=== PATIENT | female | born 1995 | race Caucasian/White ===

== ENCOUNTER 2020-08-16 12:06 | Emergency (ER) | payer OTHER ==
[2020-08-16 12:23] VITALS: BMI 25.0
[2020-08-16] MEDS ORDERED: SODIUM CHLORIDE 1,000 ML IV STA (12:48)
[2020-08-16] MEDS ORDERED: FAMOTIDINE 20 MG/50 ML IVPB 20 MG/50 ML MG IVPB ONE ×2 (12:48→13:17)
[2020-08-16] MEDS ORDERED: ACETAMINOPHEN 1000 MG/100 ML VIAL (NON FORMULARY) IVPB ONE (12:48)
[2020-08-16] MEDS ORDERED: ACETAMINOPHEN INJECTION 100 ML IVPB ONE (13:17)
[2020-08-16 13:51] LABS: BASO % 0.3 % (0-2.0); EOS % 1.6 % (0-4.5); HEMATOCRIT 35.5 % (32.4-45.2); HEMOGLOBIN 12.4 GM/dL (10.7-15.3); LYMPH % 21.4 % (8-40); MCH 30.5 pg (25.7-33.7); MCHC 34.8 g/dl (32.0-36.0); MEAN CELL VOLUME 87.6 fl (80-96); MEAN PLT VOLUME 7.7 fl (7.5-11.1); MONO % 9.6 % (3.8-10.2); NEUT % 67.1 % (42.8-82.8); PLATELET COUNT 296 K/MM3 (134-434); RBC 4.05 M/mm3 (3.60-5.2); RDW 12.8 % (11.6-15.6); WHITE BLOOD COUNT 8.3 K/mm3 (4.0-10.0)
[2020-08-16 13:53] LABS: EPI CELLS >36 /uL (0-25.1); HYALINE CASTS 9 /uL (0-3.1); PH,URINE 6.5 (5.0-8.0); URINE APPEARANCE CLOUDY; URINE BACTERIA 1139 /uL (0-1359); URINE BILIRUBIN NEGATIVE (NEGATIVE); URINE COLOR DK YELLOW; URINE GLUCOSE (UA) NEGATIVE (NEGATIVE); URINE KETONE TRACE (NEGATIVE); URINE LEUK ESTERASE 1+ (NEGATIVE); URINE NITRITE NEGATIVE (NEGATIVE); URINE PROTEIN 2+ (NEGATIVE); URINE RBC 32 /uL (0-23.9); URINE WBC 39 /uL (0-25.8)
[2020-08-16 14:11] LABS: ALBUMIN 3.5 g/dl (3.4-5.0); CALCIUM 9.8 mg/dL (8.5-10.1)
[2020-08-16 14:14] LABS: CREATININE 0.5 mg/dL (0.55-1.3)
[2020-08-16 14:16] LABS: BILIRUBIN,TOTAL 0.2 mg/dL (0.2-1); TOT PROT 7.8 g/dl (6.4-8.2)
[2020-08-16 15:35] VITALS: BP 124/82; PULSE 85; TEMP 98
== END 2020-08-16 15:36 | disposition home or self-care (01) ==
LOC: JER 12:06
PROC: 3E0333Z Introduction of Anti-inflammatory into Peripheral Vein, Percutaneous Approach (ICD-10-PCS; principal; 2020-08-16)
PROC: 3E033GC Introduction of Other Therapeutic Substance into Peripheral Vein, Percutaneous Approach (ICD-10-PCS; 2020-08-16)
PROC: 3E0337Z Introduction of Electrolytic and Water Balance Substance into Peripheral Vein, Percutaneous Approach (ICD-10-PCS; 2020-08-16)
DX: O23.11 Infections of bladder in pregnancy, first trimester (principal); R10.13 Epigastric pain; Z3A.13 13 weeks gestation of pregnancy
CPT/HCPCS: 36415; 76705-TC; 76815; 80053; 81003; 83690; 85025; 87086; 99284-25; J0131

== ENCOUNTER 2020-09-22 14:46 | Emergency (ER) | payer OTHER ==
[2020-09-22 14:54] VITALS: BP 113/72; PULSE 96; TEMP 98.2; BMI 25.0
[2020-09-22 16:45] LABS: EPI CELLS >36 /uL (0-25.1); HYALINE CASTS 4 /uL (0-3.1); PH,URINE 6.5 (5.0-8.0); URINE APPEARANCE CLEAR; URINE BACTERIA 394 /uL (0-1359); URINE BILIRUBIN NEGATIVE (NEGATIVE); URINE COLOR YELLOW; URINE GLUCOSE (UA) NEGATIVE (NEGATIVE); URINE KETONE NEGATIVE (NEGATIVE); URINE LEUK ESTERASE 1+ (NEGATIVE); URINE NITRITE NEGATIVE (NEGATIVE); URINE PROTEIN NEGATIVE (NEGATIVE); URINE RBC 34 /uL (0-23.9); URINE WBC 59 /uL (0-25.8)
== END 2020-09-22 16:58 | disposition home or self-care (01) ==
LOC: JER 14:46
DX: O26.892 Other specified pregnancy related conditions, second trimester (principal); R10.9 Unspecified abdominal pain; Z3A.18 18 weeks gestation of pregnancy
CPT/HCPCS: 81003; 87086; 99283-25

== ENCOUNTER 2021-02-01 19:30 | Inpatient (IN) | payer OTHER ==
[2021-02-01] MEDS ORDERED: ELECTROLYTE-148 SOLN 500 ML IV ONE (21:55)
[2021-02-01] MEDS ORDERED: BUTORPHANOL TARTRATE 1 MG/ML VIAL IVPB PRN (23:43)
[2021-02-01] MEDS ORDERED: PROMETHAZINE HCL 25 MG/1 ML VIAL IVPUSH ONE (23:43)
[2021-02-02 01:06] LABS: BASO % 0.3 % (0-2.0); EOS % 0.8 % (0-4.5); HEMATOCRIT 36.5 % (32.4-45.2); HEMOGLOBIN 12.5 GM/dL (10.7-15.3); LYMPH % 19.2 % (8-40); MCH 29.9 pg (25.7-33.7); MCHC 34.3 g/dl (32.0-36.0); MEAN CELL VOLUME 87.1 fl (80-96); MEAN PLT VOLUME 8.2 fl (7.5-11.1); MONO % 11.7 % (3.8-10.2); PLATELET COUNT 292 10^3/uL (134-434); RBC 4.19 M/mm3 (3.60-5.2); RDW 13.6 % (11.6-15.6); WHITE BLOOD COUNT 9.2 K/mm3 (4.0-10.0)
[2021-02-02 01:12] LABS: INR 1.01 (0.83-1.09); PROTHROMBIN TIME (PATIENT) 11.8 SEC (9.7-13.0)
[2021-02-02 01:15] LABS: ACTIVATED PTT 28.6 SECONDS (25.2-36.5)
[2021-02-02] MEDS: ELECTROLYTE-148 SOLN 1,000 ML IV SCH ×3 (01:20→22:22)
[2021-02-02 02:11] VITALS: BMI 30.3
[2021-02-02] MEDS ORDERED: FENTANYL/BUPIVACAINE/NS/PF - PCEA - 50 ML DISP.SYRIN EP ONE ×6 (02:39→23:27)
[2021-02-02] MEDS ORDERED: NALOXONE HCL 0.4 MG/ML VIAL IVPUSH PRN (02:47)
[2021-02-02] MEDS ORDERED: BUPIVACAINE HCL/PF 0.25% (2.5MG/ML) 10 ML VIAL ONE ×2 (02:48→17:36)
[2021-02-02] MEDS: FENTANYL/BUPIVACAINE/NS/PF - PCEA - 50 ML DISP.SYRIN EP SCH ×2 (03:00→21:00)
[2021-02-02] MEDS ORDERED: AMPICILLIN SODIUM 2 GM VIAL IVPB ONE (03:00)
[2021-02-02 03:23] LABS: HIV INTERPRETATION NEGATIVE (NEGATIVE)
[2021-02-02] MEDS ORDERED: AMPICILLIN SODIUM 2 GM VIAL ONE (03:45)
[2021-02-02] MEDS ORDERED: AMPICILLIN SODIUM 1 GM VIAL ONE ×5 (06:24→22:03)
[2021-02-02] MEDS: AMPICILLIN SODIUM 1 GM VIAL IVPB SCH ×5 (06:29→22:23)
[2021-02-02 14:49] LABS: POC NITRAZINE NEG
[2021-02-02] MEDS: OXYTOCIN 30 UNITS in 0.9% NS 30 UNIT/500 ML INFUS.BAG IVPB SCH (20:30)
[2021-02-02] MEDS ORDERED: OXYTOCIN 30 UNITS in 0.9% NS 30 UNIT/500 ML INFUS.BAG IVPB ONE (20:35)
[2021-02-02] MEDS ORDERED: PCA PUMP NR ONE ×2 (20:41→23:27)
[2021-02-03] MEDS ORDERED: BUPIVACAINE HCL/PF 0.25% (2.5MG/ML) 10 ML VIAL ONE (01:01)
[2021-02-03] MEDS: FENTANYL/BUPIVACAINE/NS/PF - PCEA - 50 ML DISP.SYRIN EP SCH ×2 (02:00→03:02)
[2021-02-03] MEDS ORDERED: AMPICILLIN SODIUM 1 GM VIAL ONE (02:07)
[2021-02-03] MEDS ORDERED: PCA PUMP NR ONE (02:07)
[2021-02-03] MEDS ORDERED: FENTANYL/BUPIVACAINE/NS/PF - PCEA - 50 ML DISP.SYRIN EP ONE (02:07)
[2021-02-03] MEDS: AMPICILLIN SODIUM 1 GM VIAL IVPB SCH ×2 (02:19→07:23)
[2021-02-03] MEDS ORDERED: SODIUM BICARBONATE 8.4% 50 MEQ/50 ML VIAL ONE (04:50)
[2021-02-03] MEDS ORDERED: LIDOCAINE HCL/EPINEPHRINE/PF 10 ML VIAL ONE (04:50)
[2021-02-03] MEDS ORDERED: OXYTOCIN 20 UNITS in 0.9% NS 20 UNIT/1,000 ML INFUS.BAG IV ONE ×2 (04:51→13:57)
[2021-02-03] MEDS ORDERED: CITRIC ACID/SODIUM CITRATE 30 ML UNIT-DOSE CUP PO ONE (05:00)
[2021-02-03] MEDS ORDERED: ONDANSETRON 4 MG/2 ML VIAL IVPUSH PRN (05:04)
[2021-02-03] MEDS ORDERED: ceFAZolin SODIUM 1 GM VIAL ONE (05:28)
[2021-02-03] MEDS ORDERED: METHYLERGONOVINE MALEATE 0.2 MG/1 ML AMP IM PRN (06:33)
[2021-02-03] MEDS ORDERED: IBUPROFEN 800 MG/8 ML IJ IVPB PRN (06:33)
[2021-02-03] MEDS ORDERED: ACETAMINOPHEN 1000 MG/100 ML VIAL IVPB PRN (06:41)
[2021-02-03] MEDS: OXYTOCIN 20 UNITS in 0.9% NS 20 UNIT/1,000 ML INFUS.BAG IV SCH ×2 (07:23→13:58)
[2021-02-03] MEDS: DEXTROSE 5% IVPB SCH ×2 (10:21→18:14)
[2021-02-03] MEDS: WATER IVPB SCH ×2 (10:21→18:14)
[2021-02-03] MEDS: CEFTRIAXONE IVPB SCH ×2 (10:21→18:14)
[2021-02-03 11:42] LABS: BLOOD UREA NITROGEN 9.5 mg/dL (7-18); CREATININE 0.7 mg/dL (0.55-1.3)
[2021-02-03] MEDS ORDERED: cefTRIAXone SODIUM 1 GM VIAL ONE (18:11)
[2021-02-03] MEDS ORDERED: DEXTROSE 5%-WATER - 50 ML IVPB ONE (18:11)
[2021-02-03] MEDS: SIMETHICONE 80 MG TAB.CHEW (FP) PO PRN (19:37)
[2021-02-03] MEDS: IBUPROFEN 600 MG TABLET (FP) PO PRN (19:37)
[2021-02-03] MEDS: ELECTROLYTE-148 SOLN 1,000 ML IV SCH (23:42)
[2021-02-03] MEDS: OXYTOCIN 30 UNITS in 0.9% NS 30 UNIT/500 ML INFUS.BAG IVPB SCH (23:42)
[2021-02-04] MEDS ORDERED: cefTRIAXone SODIUM 1 GM VIAL ONE (02:01)
[2021-02-04] MEDS ORDERED: DEXTROSE 5%-WATER - 50 ML IVPB ONE (02:01)
[2021-02-04] MEDS: DEXTROSE 5% IVPB SCH (02:06)
[2021-02-04] MEDS: CEFTRIAXONE IVPB SCH (02:06)
[2021-02-04] MEDS: SIMETHICONE 80 MG TAB.CHEW (FP) PO PRN ×4 (02:06→22:25)
[2021-02-04] MEDS: WATER IVPB SCH (02:06)
[2021-02-04] MEDS: IBUPROFEN 600 MG TABLET (FP) PO PRN ×4 (02:07→23:52)
[2021-02-04] MEDS: FENTANYL/BUPIVACAINE/NS/PF - PCEA - 50 ML DISP.SYRIN EP SCH (03:46)
[2021-02-04] MEDS ORDERED: BISACODYL 10 MG SUPP.RECT RC PRN (06:33)
[2021-02-04 09:08] LABS: BASO % 0.3 % (0-2.0); EOS % 0.4 % (0-4.5); HEMATOCRIT 28.9 % (32.4-45.2); LYMPH % 20.2 % (8-40); MCH 30.2 pg (25.7-33.7); MCHC 34.7 g/dl (32.0-36.0); MEAN CELL VOLUME 87.1 fl (80-96); MEAN PLT VOLUME 7.7 fl (7.5-11.1); MONO % 10.8 % (3.8-10.2); NEUT % 68.3 % (42.8-82.8); PLATELET COUNT 261 10^3/uL (134-434); RBC 3.32 M/mm3 (3.60-5.2); WHITE BLOOD COUNT 9.6 K/mm3 (4.0-10.0)
[2021-02-04] MEDS: ACETAMINOPHEN 325 MG TABLET (FP) PO PRN (23:51)
[2021-02-05] MEDS: oxyCODONE HCL 5 MG TABLET PO PRN ×2 (09:26→14:45)
[2021-02-05] MEDS: SIMETHICONE 80 MG TAB.CHEW (FP) PO PRN ×2 (09:26→14:46)
[2021-02-05] MEDS: FERROUS SO4 325 MG TABLET (FP) PO SCH (16:56)
[2021-02-05] MEDS: ACETAMINOPHEN 325 MG TABLET (FP) PO PRN (19:35)
[2021-02-05] MEDS: IBUPROFEN 600 MG TABLET (FP) PO PRN (20:43)
[2021-02-06 07:33] LABS: BASO % 0.4 % (0-2.0); EOS % 2.8 % (0-4.5); HEMATOCRIT 24.2 % (32.4-45.2); HEMOGLOBIN 8.5 GM/dL (10.7-15.3); LYMPH % 34.2 % (8-40); MCH 30.4 pg (25.7-33.7); MCHC 35.3 g/dl (32.0-36.0); MEAN CELL VOLUME 86.1 fl (80-96); MEAN PLT VOLUME 7.1 fl (7.5-11.1); MONO % 10.6 % (3.8-10.2); PLATELET COUNT 277 10^3/uL (134-434); RBC 2.81 M/mm3 (3.60-5.2); RDW 13.6 % (11.6-15.6); WHITE BLOOD COUNT 6.1 K/mm3 (4.0-10.0)
[2021-02-06] MEDS: ACETAMINOPHEN 325 MG TABLET (FP) PO PRN (08:24)
[2021-02-06] MEDS: FERROUS SO4 325 MG TABLET (FP) PO SCH (08:24)
[2021-02-06] MEDS: SIMETHICONE 80 MG TAB.CHEW (FP) PO PRN ×2 (08:27→13:53)
[2021-02-06 10:16] VITALS: BP 125/76; PULSE 75; TEMP 98
[2021-02-06] MEDS: IBUPROFEN 600 MG TABLET (FP) PO PRN (13:52)
== END 2021-02-06 14:10 | disposition home or self-care (01) | DRG 540 ==
LOC: JDEL 19:30 → JLDR 02-02 00:30 → J3W 02-03 14:16
PROVIDERS: ADMIT Obstetrics & Gynecology; ATTEND Obstetrics & Gynecology
PROC: 10D00Z1 Extraction of Products of Conception, Low, Open Approach (ICD-10-PCS; principal; 2021-02-03)
DX: O62.2 Other uterine inertia (principal); O32.4XX0 Maternal care for high head at term, not applicable or unspecified; O67.8 Other intrapartum hemorrhage; Z37.0 Single live birth; O99.824 Streptococcus B carrier state complicating childbirth; B95.1 Streptococcus, group B, as the cause of diseases classified elsewhere; O90.81 Anemia of the puerperium; D64.9 Anemia, unspecified; Z3A.37 37 weeks gestation of pregnancy
CPT/HCPCS: 36415; 59025; 80048; 83986-QW; 85025; 85610; 85730; 86762; 86780; 86850; 86900; 86901; 87389; 88307-TC; C9803; U0003; U0005

== ENCOUNTER 2021-05-10 11:05 | Emergency (ER) | payer OTHER ==
[2021-05-10 11:21] VITALS: BP 136/79; TEMP 99.9; BMI 25.2
[2021-05-10 11:23] VITALS: PULSE 121
[2021-05-10] MEDS ORDERED: IBUPROFEN 600 MG TABLET (FP) PO ONE ×2 (12:27→12:39)
[2021-05-10] MEDS ORDERED: ACETAMINOPHEN 325 MG TABLET (FP) PO ONE (12:27)
[2021-05-10] MEDS ORDERED: ACETAMINOPHEN 325 MG TABLET (FP) ONE (12:39)
[2021-05-11 14:07] LABS: SARS-CoV-2 NAA Detected (Not Detected)
== END 2021-05-10 13:50 | disposition home or self-care (01) ==
LOC: JER 11:05
DX: U07.1 COVID-19 (principal); R05.1 Acute cough
CPT/HCPCS: 71046-TC-FY; 87651; 87804; 99284-25; C9803; U0003; U0005

== ENCOUNTER 2022-04-14 17:45 | Emergency (ER) | payer BC, OTHER ==
[2022-04-14 17:55] VITALS: BP 119/77; PULSE 102; RESP 18; TEMP 98.4; BMI 25.2
[2022-04-14 19:10] LABS: HCG,QUALITATIVE URINE Negative
[2022-04-14 19:11] LABS: EPI CELLS >36 /uL (0-25.1); HYALINE CASTS 2 /uL (0-3.1); PH,URINE 5.5 (5.0-8.0); URINE APPEARANCE CLEAR; URINE BACTERIA 694 /uL (0-1359); URINE BILIRUBIN NEGATIVE (NEGATIVE); URINE COLOR YELLOW; URINE GLUCOSE (UA) NEGATIVE (NEGATIVE); URINE KETONE TRACE (NEGATIVE); URINE LEUK ESTERASE NEGATIVE (NEGATIVE); URINE NITRITE NEGATIVE (NEGATIVE); URINE PROTEIN TRACE (NEGATIVE); URINE RBC 32 /uL (0-23.9); URINE UROBILINOGEN 0.2 mg/dL (0.2-1.0); URINE WBC 51 /uL (0-25.8)
[2022-04-14] MEDS ORDERED: CEPHALEXIN MONOHYDRATE 500 MG CAPSULE (UD) PO ONE (19:23)
[2022-04-14] MEDS ORDERED: CEPHALEXIN MONOHYDRATE 500 MG CAPSULE (UD) ONE (19:33)
== END 2022-04-14 20:00 | disposition home or self-care (01) ==
LOC: JER 17:45
DX: N10 Acute pyelonephritis (principal)
CPT/HCPCS: 0241U-QW; 81003; 84703; 87086; 99283-25

== ENCOUNTER 2023-02-16 17:19 | Inpatient (IN) | payer OTHER ==
[2023-02-16] MEDS ORDERED: ELECTROLYTE-148 SOLN 1,000 ML IV SCH ×4 (18:30→20:30)
[2023-02-16] MEDS ORDERED: CITRIC ACID/SODIUM CITRATE 30 ML UNIT-DOSE CUP PO ONE (19:30)
[2023-02-16] MEDS ORDERED: OXYTOCIN 30 UNITS in 0.9% NS 30 UNIT/500 ML INFUS.BAG IVPB ONE (19:48)
[2023-02-16] MEDS ORDERED: morphine SULFATE/PF 1 MG/2 ML (2cc Syringe - QUVA) ONE (19:52)
[2023-02-16] MEDS ORDERED: DEXAMETHASONE SOD PHOSPHATE 4 MG/1 ML VIAL ONE (19:52)
[2023-02-16] MEDS ORDERED: ONDANSETRON 4 MG/2 ML VIAL ONE (19:52)
[2023-02-16] MEDS ORDERED: KETOROLAC TROMETHAMINE 30 MG/1 ML VIAL ONE (19:52)
[2023-02-16] MEDS ORDERED: FENTANYL CITRATE/PF 50 MCG/ML VIAL ONE (19:52)
[2023-02-16] MEDS ORDERED: ceFAZolin SODIUM 1 GM VIAL ONE (19:52)
[2023-02-16 20:02] LABS: BASO % 0.2 % (0-2.0); EOS % 1.2 % (0-4.5); HEMATOCRIT 36.9 % (32.4-45.2); HEMOGLOBIN 12.7 GM/dL (10.7-15.3); LYMPH % 23.2 % (8-40); MCH 30.3 pg (25.7-33.7); MCHC 34.4 g/dl (32.0-36.0); MEAN PLT VOLUME 7.1 fl (7.5-11.1); MONO % 10.8 % (3.8-10.2); NEUT % 64.6 % (42.8-82.8); PLATELET COUNT 297 10^3/uL (134-434); RBC 4.19 M/mm3 (3.60-5.2); RDW 13.4 % (11.6-15.6); WHITE BLOOD COUNT 8.3 K/mm3 (4.0-10.0)
[2023-02-16 20:09] LABS: INR 1.05 (0.83-1.09); PROTHROMBIN TIME (PATIENT) 12.2 SEC (9.7-13.0)
[2023-02-16 20:10] VITALS: BMI 28.7
[2023-02-16 20:12] LABS: ACTIVATED PTT 27.4 SECONDS (25.2-36.5)
[2023-02-16 20:31] LABS: POTASSIUM 3.7 mmol/L (3.5-5.1)
[2023-02-16 20:34] LABS: CALCIUM 8.2 mg/dL (8.5-10.1)
[2023-02-16 20:35] LABS: BLOOD UREA NITROGEN 6.9 mg/dL (7-18)
[2023-02-16 20:38] LABS: CREATININE 0.5 mg/dL (0.55-1.3)
[2023-02-16] MEDS ORDERED: ONDANSETRON 4 MG/2 ML VIAL IVPUSH PRN (20:48)
[2023-02-16] MEDS ORDERED: ACETAMINOPHEN 325 MG TABLET (FP) PO PRN (20:48)
[2023-02-16] MEDS ORDERED: BENZOCAINE 28 GM HEMORRHOIDAL OINTMENT TP PRN (22:14)
[2023-02-16] MEDS ORDERED: WITCH HAZEL 50% (TUCKS) 40 PAD/JAR PAD TP PRN (22:14)
[2023-02-16] MEDS ORDERED: BENZOCAINE 20% 57 GM BOTTLE TP PRN (22:14)
[2023-02-16] MEDS ORDERED: METHYLERGONOVINE MALEATE 0.2 MG/1 ML AMP IM PRN (22:14)
[2023-02-16] MEDS ORDERED: OXYTOCIN 20 UNITS in 0.9% NS 20 UNIT/1,000 ML INFUS.BAG IV SCH (22:15)
[2023-02-16 22:41] LABS: CORD BASE EXCESS -2.8 mmol/L (0-2); CORD HCO3 25.3 mmHg (20-29); CORD pH 7.265 (7.14-7.44)
[2023-02-16 22:42] LABS: CORD HCO3 26.9 mmHg (20-29); CORD PCO2 69.8 mmHg (30-78); CORD pH 7.204 (7.14-7.44)
[2023-02-16] MEDS ORDERED: IBUPROFEN 800 MG/8 ML IJ IVPB ONE (23:50)
[2023-02-16] MEDS: IBUPROFEN 800 MG/8 ML IJ IVPB PRN (23:55)
[2023-02-17 07:44] LABS: BASO % 0.1 % (0-2.0); HEMATOCRIT 34.2 % (32.4-45.2); HEMOGLOBIN 11.4 GM/dL (10.7-15.3); LYMPH % 14.5 % (8-40); MCH 29.8 pg (25.7-33.7); MCHC 33.1 g/dl (32.0-36.0); MEAN CELL VOLUME 89.9 fl (80-96); MEAN PLT VOLUME 7.2 fl (7.5-11.1); NEUT % 77.4 % (42.8-82.8); PLATELET COUNT 262 10^3/uL (134-434); RBC 3.81 M/mm3 (3.60-5.2); RDW 13.2 % (11.6-15.6); WHITE BLOOD COUNT 11.7 K/mm3 (4.0-10.0)
[2023-02-17] MEDS: IBUPROFEN 800 MG/8 ML IJ IVPB PRN (10:10)
[2023-02-17] MEDS ORDERED: oxyCODONE HCL 5 MG TABLET PO PRN ×2 (10:14)
[2023-02-17] MEDS: IBUPROFEN 600 MG TABLET (FP) PO PRN (20:20)
[2023-02-17] MEDS: SIMETHICONE 80 MG TAB.CHEW (FP) PO PRN (20:20)
[2023-02-17] MEDS ORDERED: BISACODYL 10 MG SUPP.RECT RC PRN (22:14)
[2023-02-18] MEDS: IBUPROFEN 600 MG TABLET (FP) PO PRN ×3 (06:22→21:25)
[2023-02-18] MEDS: SIMETHICONE 80 MG TAB.CHEW (FP) PO PRN ×2 (06:22→21:25)
[2023-02-18] MEDS ORDERED: FLU VACCINE (FLULAVAL) PF 60 MCG/0.5 ML SYRINGE 2023-2024 IM ONE (10:00)
[2023-02-19] MEDS: IBUPROFEN 600 MG TABLET (FP) PO PRN (02:43)
[2023-02-19 09:03] LABS: BASO % 0.2 % (0-2.0); EOS % 2.3 % (0-4.5); HEMATOCRIT 36.8 % (32.4-45.2); HEMOGLOBIN 12.3 GM/dL (10.7-15.3); LYMPH % 16.2 % (8-40); MCH 30.3 pg (25.7-33.7); MCHC 33.4 g/dl (32.0-36.0); MEAN CELL VOLUME 90.7 fl (80-96); MEAN PLT VOLUME 7.1 fl (7.5-11.1); MONO % 8.3 % (3.8-10.2); PLATELET COUNT 267 10^3/uL (134-434); RBC 4.06 M/mm3 (3.60-5.2); RDW 13.5 % (11.6-15.6)
[2023-02-19 12:35] VITALS: BP 124/76; PULSE 96; RESP 16; TEMP 97.3
== END 2023-02-19 14:15 | disposition home or self-care (01) | DRG 540 ==
LOC: JDEL 17:19 → JLDR 19:30 → J3W 23:47
PROVIDERS: ADMIT Obstetrics & Gynecology; ATTEND Obstetrics & Gynecology
PROC: 10D00Z1 Extraction of Products of Conception, Low, Open Approach (ICD-10-PCS; principal; 2023-02-16)
DX: O34.211 Maternal care for low transverse scar from previous cesarean delivery (principal); O69.81X0 Labor and delivery complicated by cord around neck, without compression, not applicable or unspecified; Z3A.37 37 weeks gestation of pregnancy; Z37.0 Single live birth
CPT/HCPCS: 36415; 36600; 59025; 80048; 82803; 85025; 85610; 85730; 86780; 86850; 86900; 86901; 88307-TC; 90686; G0008

== ENCOUNTER 2023-03-07 18:43 | Emergency (ER) | payer OTHER ==
[2023-03-07 18:49] VITALS: BP 136/86; PULSE 98; RESP 18; TEMP 97.7; BMI 25.3
[2023-03-07] MEDS ORDERED: ACETAMINOPHEN 325 MG TABLET (FP) PO ONE (19:58)
[2023-03-07] MEDS ORDERED: LIDOCAINE 5% TOPICAL PATCH TP ONE (19:58)
[2023-03-07] MEDS ORDERED: ACETAMINOPHEN 325 MG TABLET (FP) ONE (20:04)
[2023-03-07] MEDS ORDERED: LIDOCAINE 4% PATCH TP ONE (20:05)
[2023-03-07] MEDS ORDERED: IBUPROFEN 400 MG TABLET (FP) PO ONE ×2 (20:08→20:10)
[2023-03-07] MEDS ORDERED: LIDOCAINE PATCH REMOVAL MC SCH (22:00)
== END 2023-03-07 20:51 | disposition home or self-care (01) ==
LOC: JERFT 18:43
DX: M54.50 Low back pain, unspecified (principal)
CPT/HCPCS: 99283-25

== ENCOUNTER 2023-04-21 04:27 | Day surgery (SDC) | payer OTHER ==
[2023-04-17 09:02] VITALS: BMI 25.0
[2023-04-21] MEDS ORDERED: MIDAZOLAM HCL 2 MG/2 ML SINGLE DOSE VIAL ONE (08:51)
[2023-04-21] MEDS ORDERED: PROPOFOL 20 ML ONE (08:51)
[2023-04-21] MEDS ORDERED: KETOROLAC TROMETHAMINE 30 MG/1 ML VIAL ONE (08:52)
[2023-04-21] MEDS ORDERED: LIDOCAINE HCL/PF 2% SDV 5ML VIAL ONE (08:52)
[2023-04-21] MEDS ORDERED: METOCLOPRAMIDE HCL INJECTION 10 MG/2 ML VIAL ONE (08:52)
[2023-04-21] MEDS ORDERED: ONDANSETRON 4 MG/2 ML VIAL ONE (08:52)
[2023-04-21] MEDS ORDERED: ceFAZolin SODIUM 1 GM VIAL ONE (08:52)
[2023-04-21] MEDS ORDERED: SODIUM CHLORIDE 0.9% P/F 10 ML VIAL IJ ONE ×2 (08:52→08:53)
[2023-04-21] MEDS ORDERED: DEXAMETHASONE SOD PHOSPHATE 4 MG/1 ML VIAL ONE (08:52)
[2023-04-21] MEDS ORDERED: ePHEDrine SULFATE 50 MG/1 ML AMPULE ONE (08:53)
[2023-04-21] MEDS ORDERED: ROCURONIUM BROMIDE 50 MG/5 ML SYRINGE ONE (08:53)
[2023-04-21] MEDS ORDERED: LACTATED RINGERS SOLUTION 1,000 ML IV SCH (09:15)
[2023-04-21] MEDS ORDERED: oxyCODONE HCL 5 MG TABLET PO PRN (09:15)
[2023-04-21] MEDS ORDERED: ONDANSETRON 4 MG/2 ML VIAL IVPUSH PRN (09:15)
[2023-04-21] MEDS ORDERED: IBUPROFEN 800 MG/8 ML IJ IVPB PRN (09:16)
[2023-04-21] MEDS ORDERED: ACETAMINOPHEN INJECTION 100 ML IVPB ONE (09:22)
[2023-04-21] MEDS: ceFAZolin SODIUM 1 GM VIAL IVPB ONE (10:10)
[2023-04-21] MEDS ORDERED: KETAMINE HCL 200 MG/20 ML VIAL ONE (10:15)
[2023-04-21] MEDS ORDERED: GLYCOPYRROLATE 0.2 MG/1 ML VIAL ONE (10:15)
[2023-04-21] MEDS ORDERED: BUPIVACAINE HCL/PF 0.25% (2.5MG/ML) 10 ML VIAL ONE (10:40)
[2023-04-21] MEDS ORDERED: HYDROmorphone HCl 2 MG/ML VIAL ONE (10:41)
[2023-04-21] MEDS ORDERED: SUGAMMADEX SODIUM 200 MG/2 ML VIAL ONE (10:43)
[2023-04-21] MEDS ORDERED: LIDOCAINE HCL 2% JELLY 6 ML TP ONE (10:53)
[2023-04-21] MEDS: BUPIVACAINE HCL/PF 0.25% (2.5MG/ML) 10 ML VIAL IJ ONE (10:55)
[2023-04-21 13:21] VITALS: RESP 18
[2023-04-21 16:27] VITALS: BP 122/70; PULSE 76; TEMP 97.6
== END 2023-04-21 16:15 | disposition home or self-care (01) ==
LOC: JASU-SURG 04:27
PROVIDERS: ATTEND Obstetrics & Gynecology
PROC: 0UB74ZZ Excision of Bilateral Fallopian Tubes, Percutaneous Endoscopic Approach (ICD-10-PCS; principal; 2023-04-21 09:00)
DX: Z30.2 Encounter for sterilization (principal)
CPT/HCPCS: 81025; 88305-TC; 94760; J0131